=== PATIENT | male | born 1965 | race Caucasian/White ===

== ENCOUNTER 2016-08-06 01:50 | Emergency (ER) | payer OTHER ==
[~2016-08-06] VITALS: Ht 170.2 cm; Wt 89.0 kg
[2016-08-06 02:02] VITALS: BP 160/100
== END 2016-08-06 03:31 | disposition left against medical advice (07) ==
LOC: ER 01:53
DX: M79.603 Pain in arm, unspecified (principal); Z53.21 Procedure and treatment not carried out due to patient leaving prior to being seen by health care provider